=== PATIENT | male | born 1960 | race African-American/Black ===

== ENCOUNTER 2016-10-25 11:21 | Inpatient (IN) | payer OTHER ==
[2016-10-25 14:10] VITALS: BMI 24.5
--- NOTE | 2016-10-25 15:04 | HP ---
Admission ROS [facility] Chief Complaint: I AM HERE FOR REHAB FROM HEROIN,ALCOHOL,COCAINE Allergies/Adverse Reactions: Allergies Allergy/AdvReac Type Severity Reaction Status Date / Time No Known Allergies Allergy Verified 10/25/16 14:48 History of Present Illness: THIS 55 YEARS OLD MALE WITH HEROIN ALCOHOL AND COCAINE DEPENDENCE,FOR REHAB, LAST DETOX [facility] 10/19/16 TO 10/25/16 ASTHMA GERD NICOTINE DEPENDENCE LONGEST PERIOD SOBRIETY 7 YEARS Exam Limitations: No Limitations - Ebola screening Have you been sick,other than usual withdrawal symptoms: No - Review of Systems Constitutional: No Symptoms Reported EENT: reports: No Symptoms Reported Respiratory: reports: No Symptoms reported Cardiac: reports: No Symptoms Reported GI: reports: No Symptoms Reported : reports: No Symptoms Reported Musculoskeletal: reports: No Symptoms Reported Integumentary: reports: No Symptoms Reported Neuro: reports: No Symptoms reported Endocrine: reports: No Symptoms Reported Hematology: reports: No Symptoms Reported Psychiatric: reports: No Sypmtoms Reported Patient History - Patient Medical History Hx Anemia: No Hx Asthma: Yes (ON ALBUTEROL INHALER) Hx Chronic Obstructive Pulmonary Disease (COPD): No Hx Cancer: No Hx Cardiac Disorders: No Hx Congestive Heart Failure: No Hx Hypertension: No Hx Hypercholesterolemia: No Hx Pacemaker: No HX Cerebrovascular Accident: No Hx Seizures: No Hx Dementia: No Hx Diabetes: No Hx Gastrointestinal Disorders: Yes (GERD) Hx Liver Disease: No Hx Genitourinary Disorders: No Hx Sexually Transmitted Disorders: No Hx Renal Disease (ESRD): No Hx Thyroid Disease: No Hx Human Immunodeficiency Virus (HIV): No (LAST 2014 NEGATIVE) Hx Hepatitis C: No Hx Depression: No Hx Suicide Attempt: No Hx Bipolar Disorder: No Hx Schizophrenia: No Other Medical History: NO SUICIDAL,NO HOMICIDAL - Patient Surgical History Hx Abdominal Surgery: Yes (BLEEDING [facility]LCER IN [facility] 2009) - PPD History Previous Implant?: Yes Documented Results: Negative w/proof Implanted On Prior R Admission?: No PPD to be Administered?: No - Smoking Cessation Smoking history: Current every day smoker Have you smoked in the past 12 months: Yes Aproximately how many cigarettes per day: 5 Cigars Per Day: 0 Hx Chewing Tobacco Use: No Initiated information on smoking cessation: Yes 'Breaking Loose' booklet given: 10/25/16 - Substance & Tx. History Hx Alcohol Use: Yes Hx Substance Use: Yes Substance Use Type: Alcohol, Cocaine, Heroin Hx Substance Use Treatment: Yes - Substances Abused Heroin Route: Inhalation Frequency: Daily Amount used: 3 bags Age of first use: 34 Date of Last Use: 10/19/16 Crack Route: Smoking Frequency: Daily Amount used: $50 Age of first use: 34 Date of Last Use: 10/19/16 Alcohol Route: Oral Frequency: Daily Amount used: 1 pint rum Age of first use: 24 Date of Last Use: 10/19/16 Family Disease History - Family Disease History Family History: Denies Admission Physical Exam [facility] - Vital Signs Vital Signs: Vital Signs - 24 hr 10/25/16 14:07 Temperature 97 F L Pulse Rate 88 Respiratory 20 Rate Blood Pressure 113/87 - Physical General Appearance: Yes: Within Normal Limits, Appropriately Dressed HEENTM: Yes: Within Normal Limits Respiratory: Yes: Lungs Clear, Normal Breath Sounds, No Respiratory Distress Neck: Yes: Trachea in good position Breast: Yes: Within Normal Limits Cardiology: Yes: Within Normal Limits, Regular Rhythm, Regular Rate, S1, S2 Abdominal: Yes: Normal Bowel Sounds, Flat, Soft, Surgical Scar Genitourinary: Yes: Within Normal Limits Back: Yes: Within Normal Limits Musculoskeletal: Yes: Within Normal Limits, full range of Motion Extremities: Yes: Within Normal Limits 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 intact, Fully Oriented, Alert, Motor Strength 5/5 Integumentary: Yes: Within Normal Limits Lymphatic: Yes: Within Normal Limits - Diagnostic (1) Opioid dependence Current Visit: Yes Status: Acute (2) Cocaine dependence Current Visit: Yes Status: Acute (3) Alcohol dependence Current Visit: Yes Status: Acute (4) GERD (gastroesophageal reflux disease) Current Visit: Yes Status: Acute (5) Asthma attack Current Visit: Yes Status: Acute (6) Bleeding ulcer Current Visit: Yes Status: Acute (7) Weight loss Current Visit: Yes Status: Acute (8) Nicotine dependence Current Visit: Yes Status: Acute Cleared for Admission [facility] - Detox or Rehab Claeared for Rehab Admission: Yes [facility] Breath Alcohol Content Breath Alcohol Content: 0 Urine Drug Screen - Results Drug Screen Negative: Yes Urine Drug Screen Results: MET-Methamphetamine, BZO-Benzodiazepines
[2016-10-25] MEDS ORDERED: MAGNESIUM HYDROX 2400MG/30ML ORAL SUSPENSION 30 ML CUP PO PRN (15:13)
[2016-10-25] MEDS ORDERED: MAGNESIUM CITRATE 300 ML BOTTLE PO PRN (15:13)
[2016-10-25] MEDS ORDERED: LOPERAMIDE HCL 2 MG CAPSULE PO PRN (15:13)
[2016-10-25] MEDS ORDERED: MENTHOL/PHENOL 1 EACH UD MM PRN (15:13)
[2016-10-25] MEDS ORDERED: guaiFENesin/D-METHORPHAN HB 10 ML UNIT-DOSE CUPS PO PRN (15:13)
[2016-10-25] MEDS: NICOTINE 14 MG/24 HOURS TOPICAL PATCH TD SCH (17:37)
[2016-10-25 17:50] LABS: MCH 29.2 pg (25.7-33.7); MCHC 33.3 g/dl (32.0-35.9); MEAN CELL VOLUME 87.6 fl (80-96); RDW 15.1 % (11.9-15.9); WHITE BLOOD COUNT 4.9 K/mm3 (4.0-10.0)
[2016-10-25 18:01] LABS: ALBUMIN 3.4 g/dl (3.4-5.0); ANION GAP 7 (8-16); CALCIUM 9.1 mg/dL (8.5-10.1); CO2 32 mmol/L (21-32); GLUCOSE,RANDOM 151 mg/dL (74-106); SGOT/AST 30 U/L (15-37); SGPT/ALT 37 U/L (12-78)
[2016-10-25 18:04] LABS: ALK PHOS 61 U/L (45-117); BILIRUBIN,TOTAL 0.4 mg/dL (0.2-1.0)
[2016-10-25 19:07] LABS: URINE APPEARANCE CLEAR; URINE BILIRUBIN NEGATIVE (NEGATIVE); URINE BLOOD NEGATIVE (NEGATIVE); URINE COLOR STRAW; URINE GLUCOSE (UA) NEGATIVE (NEGATIVE); URINE KETONE NEGATIVE (NEGATIVE); URINE LEUK ESTERASE NEGATIVE (NEGATIVE); URINE NITRITE NEGATIVE (NEGATIVE); URINE PROTEIN NEGATIVE (NEGATIVE); URINE UROBILINOGEN NEGATIVE E.U./dl (0.2-1.0)
[2016-10-25 20:50] LABS: MEAN PLT VOLUME 9.5 fl (7.5-11.1); PLATELET COUNT 206 K/MM3 (134-434); PLATELET ESTIMATE ADEQUATE (NORMAL)
[2016-10-25] MEDS: RANITIDINE HCL 150 MG TABLET (FP) PO SCH (21:17)
[2016-10-25] MEDS: THIAMINE HCL 100 MG TABLET (FP) PO SCH (21:17)
[2016-10-26] MEDS: IBUPROFEN 400 MG TABLET (FP) PO PRN (06:07)
[2016-10-26] MEDS: PRENATAL VITAMINS W/ FOLIC ACID TABLET (FP) PO SCH (09:31)
[2016-10-26] MEDS: RANITIDINE HCL 150 MG TABLET (FP) PO SCH ×2 (09:31→21:08)
[2016-10-26] MEDS: NICOTINE 14 MG/24 HOURS TOPICAL PATCH TD SCH (10:30)
--- NOTE | 2016-10-26 14:59 | EKG ---
Test Reason : Blood Pressure : / mmHG Vent. Rate : 087 BPM Atrial Rate : 087 BPM P-R Int : 180 ms QRS Dur : 074 ms QT Int : 340 ms P-R-T Axes : 072 028 041 degrees QTc Int : 409 ms NORMAL SINUS RHYTHM NONSPECIFIC T WAVE ABNORMALITY ABNORMAL ECG Confirmed by AUBREY PRADO MD ([id number]) on 10/26/2016 2:59:01 PM Referred By: Zamzam Campbell Confirmed By:AUBREY PRADO MD
--- NOTE | 2016-10-26 15:01 | EKG ---
Test Reason : Blood Pressure : / mmHG Vent. Rate : 093 BPM Atrial Rate : 093 BPM P-R Int : 182 ms QRS Dur : 084 ms QT Int : 340 ms P-R-T Axes : 075 020 026 degrees QTc Int : 422 ms NORMAL SINUS RHYTHM POSSIBLE LEFT ATRIAL ENLARGEMENT SEPTAL INFARCT , AGE UNDETERMINED ABNORMAL ECG NO PREVIOUS ECGS AVAILABLE Confirmed by AUBREY PRADO MD ([id number]) on 10/26/2016 3:01:10 PM Referred By: Zamzam Campbell Confirmed By:AUBREY PRADO MD
[2016-10-26] MEDS: diphenhydrAMINE HCL 50 MG CAPSULE PO PRN ×2 (21:08→22:01)
[2016-10-26] MEDS: THIAMINE HCL 100 MG TABLET (FP) PO SCH (21:08)
[2016-10-27] MEDS: IBUPROFEN 400 MG TABLET (FP) PO PRN ×3 (00:18→21:08)
[2016-10-27] MEDS: NICOTINE 14 MG/24 HOURS TOPICAL PATCH TD SCH (09:28)
[2016-10-27] MEDS: RANITIDINE HCL 150 MG TABLET (FP) PO SCH ×2 (09:28→21:07)
[2016-10-27] MEDS: PRENATAL VITAMINS W/ FOLIC ACID TABLET (FP) PO SCH (09:28)
[2016-10-27] MEDS: hydrOXYzine PAMOATE 50 MG CAPSULE (FP) PO PRN (21:07)
[2016-10-27] MEDS: THIAMINE HCL 100 MG TABLET (FP) PO SCH (21:07)
--- NOTE | 2016-10-28 06:41 | HP ---
Psychiatrist Admission - Data Date of interview: 10/28/16 Admission source: [facility] Identifying data: nThis is the first [facility] admission for this 55 years old single male, father of 3 children, uemployed on SSI, homeless seeking reheb treatment for alcohol, heroin and cocaine Medical History: Significant for Asthma, GERD and surgery for bleeding ulcer. Smokes 5 cigarettes daily Psychiatric History: Denies history of previous psychiatric treatment Physical/Sexual Abuse/Trauma History: Denies history of emotional, physical, sexual abuse as well as DV relationship Additional Comment: Reports history of multiple arrests including 3 felony convictions. Reports having an open case for a warrant Vital Signs: Vital Signs - 24 hr 10/28/16 10/28/16 00:30 03:26 Respiratory 18 18 Rate Allergies/Adverse Reactions: Allergies Allergy/AdvReac Type Severity Reaction Status Date / Time No Known Allergies Allergy Verified 10/25/16 14:48 Date of last physical exam: 10/25/16 Concur with the findings of this exam: Yes - Substance Abuse/Tx History Hx Alcohol Use: Yes Hx Substance Use: Yes Substance Use Type: Alcohol (Started drinking alcohol at age 24, consumes one pint of rum daily. Last drink ob 10/19/16), Cocaine (Started smoking crack cocaine at age 34, consumes $50 worth daily. Last smoked on 10/19/16), Heroin ( Started using heroin at age 34, consumes 3 bags daily. Last used on 10/19/16) Hx Substance Use Treatment: Yes (2 previous inpt detox & one inpt rehab) - Admission Criteria Previous failed treatment: No Poor recovery environment: Yes Comorbidities: Yes Lacks judgement: Yes Mental Status Exam - Mental Status Exam Alert and Oriented to: Time, Place, Person Cognitive Function: Fair Patient Appearance: Disheveled Mood: Hopeful, Euthymic Patient Behavior: Cooperative Speech Pattern: Clear Voice Loudness: Normal Thought Process: Intact Thought Disorder: Not Present Hallucinations: Denies Suicidal Ideation: Denies Homicidal Ideation: Denies Insight/Judgement: Fair Sleep: Poorly Appetite: Good Muscle strength/Tone: Normal Gait/Station: Normal Psychiatric Findings - Problem List ([place] 1, 2,3) (1) Alcohol dependence Current Visit: Yes Status: Acute (2) Opioid dependence Current Visit: Yes Status: Acute (3) Cocaine dependence Current Visit: Yes Status: Acute (4) Nicotine dependence Current Visit: Yes Status: Acute (5) Substance-induced sleep disorder Current Visit: Yes Status: Acute (6) Asthma attack Current Visit: Yes Status: Acute (7) Bleeding ulcer Current Visit: Yes Status: Acute (8) GERD (gastroesophageal reflux disease) Current Visit: Yes Status: Acute - Initial Treatment Plan Initial Treatment Plan: 1) Start Trazadone 100 mg po HS for insomnia. 2) Monitor
[2016-10-28] MEDS: IBUPROFEN 400 MG TABLET (FP) PO PRN ×2 (09:00→21:53)
[2016-10-28] MEDS: PRENATAL VITAMINS W/ FOLIC ACID TABLET (FP) PO SCH (09:38)
[2016-10-28] MEDS: RANITIDINE HCL 150 MG TABLET (FP) PO SCH ×2 (09:39→21:21)
[2016-10-28] MEDS: NICOTINE 14 MG/24 HOURS TOPICAL PATCH TD SCH (09:39)
[2016-10-28] MEDS ORDERED: LIDOCAINE 5% TOPICAL PATCH TP ONE (14:01)
[2016-10-28] MEDS: THIAMINE HCL 100 MG TABLET (FP) PO SCH (21:21)
[2016-10-28] MEDS: hydrOXYzine PAMOATE 50 MG CAPSULE (FP) PO PRN (21:21)
[2016-10-28] MEDS: ALBUTEROL SO4 6.7 GM HFA INHALER IH PRN (21:23)
[2016-10-28] MEDS: diphenhydrAMINE HCL 50 MG CAPSULE PO PRN (23:39)
[2016-10-29] MEDS: IBUPROFEN 400 MG TABLET (FP) PO PRN (05:59)
[2016-10-29] MEDS: RANITIDINE HCL 150 MG TABLET (FP) PO SCH ×2 (09:38→21:11)
[2016-10-29] MEDS: PRENATAL VITAMINS W/ FOLIC ACID TABLET (FP) PO SCH (09:38)
[2016-10-29] MEDS: NICOTINE 14 MG/24 HOURS TOPICAL PATCH TD SCH (09:38)
[2016-10-29] MEDS: LIDOCAINE 5% TOPICAL PATCH TP SCH (09:40)
[2016-10-29] MEDS: THIAMINE HCL 100 MG TABLET (FP) PO SCH (21:11)
[2016-10-29] MEDS: IBUPROFEN 600 MG TABLET (FP) PO PRN (21:11)
[2016-10-29] MEDS ORDERED: traZODone HCL 100 MG TABLET (FP) PO SCH (22:00)
[2016-10-29] MEDS: diphenhydrAMINE HCL 50 MG CAPSULE PO PRN (22:58)
[2016-10-30] MEDS: IBUPROFEN 600 MG TABLET (FP) PO PRN ×2 (07:18→22:08)
[2016-10-30] MEDS: RANITIDINE HCL 150 MG TABLET (FP) PO SCH ×2 (09:32→21:27)
[2016-10-30] MEDS: PRENATAL VITAMINS W/ FOLIC ACID TABLET (FP) PO SCH (09:32)
[2016-10-30] MEDS: LIDOCAINE 5% TOPICAL PATCH TP SCH (09:32)
[2016-10-30] MEDS: NICOTINE 14 MG/24 HOURS TOPICAL PATCH TD SCH (09:32)
--- NOTE | 2016-10-30 10:11 | PN ---
Psychiatric Progress Note Vital Signs: Vital Signs Period Temp Pulse Resp BP Sys/[place] Pulse Ox Last 24 Hr 98.3 F 89 18-20 133/89 Date of Session: 10/30/16 Chief Complaint:: Insomnia HPI: Patient addressing Alcohol, Opoid and Cocaine Dependence comorbid with Nicotine Dependence and Substance-Induced Sleep Disorder ROS: Asthma, GERD, Bleeding ulcer Current Medications: Active Medications Generic Name Dose Route Start Last Admin Trade Name Freq PRN Reason Stop Dose Admin Acetaminophen 650 mg 10/25/16 15:13 Tylenol - PO Q4H PRN PAIN Al Hydroxide/Mg Hydroxide 30 ml 10/25/16 15:13 Mylanta Oral Suspension - PO Q6H PRN DYSPEPSIA Albuterol Sulfate 2 puff 10/25/16 15:15 10/28/16 21:23 Ventolin Hfa Inhaler - IH 2 puff Q4H PRN Administration ASTHMA Diphenhydramine HCl 50 mg 10/25/16 15:13 10/29/16 22:58 Benadryl - PO 50 mg HSMR1 PRN Administration INSOMNIA Eucalyptus/Menthol/Phenol/Sorbitol 1 each 10/25/16 15:13 Cepastat Lozenge - MM Q4H PRN SORE THROAT Guaifenesin 10 ml 10/25/16 15:13 Robitussin Dm - PO Q6H PRN COUGH Hydroxyzine Pamoate 50 mg 10/25/16 15:13 10/28/16 21:21 Vistaril - PO 50 mg Q4H PRN Administration AGITATION Ibuprofen 600 mg 10/29/16 14:05 10/30/16 07:18 Motrin - PO 600 mg Q6H PRN Administration SEVERE PAIN Lidocaine 1 patch 10/29/16 10:00 10/30/16 09:32 Lidoderm Patch - TP 1 patch DAILY AHSLYN Administration Loperamide HCl 4 mg 10/25/16 15:13 Imodium - PO Q6H PRN DIARRHEA Magnesium Citrate 300 ml 10/25/16 15:13 Citroma - PO Q48H PRN CONSTIPATION Magnesium Hydroxide 30 ml 10/25/16 15:13 Milk Of Magnesia - PO DAILY PRN CONSTIPATION Nicotine 14 mg 10/25/16 15:27 10/30/16 09:32 Nicoderm Patch - TD 14 mg DAILY ASHLYN Administration Multivit/Folic Acid/Iron 1 tab 10/26/16 10:00 10/30/16 09:32 Vitamins (Sjr) - PO 1 tab DAILY ASHLYN Administration Pseudoephedrine/Triprolidine 1 combo 10/25/16 15:13 Actifed - PO TID PRN NASAL CONGESTION Ranitidine HCl 150 mg 10/25/16 22:00 10/30/16 09:32 Zantac - PO 150 mg BID ASHLYN Administration Thiamine HCl 100 mg 10/25/16 22:00 10/29/16 21:11 Vitamin B1 - PO 100 mg HS ASHLYN Administration Trazodone HCl 100 mg 10/29/16 22:00 10/29/16 21:11 Desyrel - PO 100 mg HS ASHLYN Administration Medication(s) Change(s): Increase Trazadone to 150 mg po HS for insomnia Current Side Effect: No Lab tests ordered: Yes Lab tests reviewed: Yes Provider note:: Patient reports experiencing difficulty to sleep. Reports sleeping poorly despite taking Trazadone 100 mg po HS last night. He requests that Seroquel be ordered for him. He was educated about some adverse-effects( Diabetes, Tardive Dyskesia) of Seroquel and makes the decision to have an increase dose of Seroquel instead Total face to face time:: 25 Mental Status Exam - Mental Status Exam Alert and Oriented to: Time, Place, Person Cognitive Function: Fair Patient Appearance: Well Groomed Mood: Hopeful, Euthymic Affect: Appropriate Patient Behavior: Cooperative Speech Pattern: Clear Voice Loudness: Normal Thought Process: Intact Thought Disorder: Not Present Hallucinations: Denies Suicidal Ideation: Denies Homicidal Ideation: Denies Insight/Judgement: Fair Sleep: Poorly Appetite: Good Muscle strength/Tone: Normal Gait/Station: Normal Psychiatric Treatment Plan - Problem List (1) Alcohol dependence Current Visit: Yes (2) Opioid dependence Current Visit: Yes (3) Cocaine dependence Current Visit: Yes (4) Nicotine dependence Current Visit: Yes (5) Substance-induced sleep disorder Current Visit: Yes (6) Asthma attack Current Visit: Yes (7) Bleeding ulcer Current Visit: Yes (8) GERD (gastroesophageal reflux disease) Current Visit: Yes Initial treatment plan: 1) Discontinue Trazadone 100 mg po HS. 2) Start Trazadone 150 mg po HS for insomnia
[2016-10-30 10:54] LABS: CREATININE 0.9 mg/dL (0.7-1.3)
[2016-10-30] MEDS: COLLOIDAL OATMEAL 1 BAR EACH TP PRN (21:26)
[2016-10-30] MEDS: THIAMINE HCL 100 MG TABLET (FP) PO SCH (21:27)
[2016-10-30] MEDS ORDERED: traZODone HCL 50 MG TABLET (FP) PO SCH (22:00)
[2016-10-30] MEDS: diphenhydrAMINE HCL 50 MG CAPSULE PO PRN (23:45)
[2016-10-31] MEDS: IBUPROFEN 600 MG TABLET (FP) PO PRN ×2 (06:10→21:27)
[2016-10-31] MEDS: PRENATAL VITAMINS W/ FOLIC ACID TABLET (FP) PO SCH (09:34)
[2016-10-31] MEDS: NICOTINE 14 MG/24 HOURS TOPICAL PATCH TD SCH (09:34)
[2016-10-31] MEDS: RANITIDINE HCL 150 MG TABLET (FP) PO SCH ×2 (09:34→21:26)
[2016-10-31] MEDS: P-EPHED 60MG/TRIPROLIDI 2.5MG TABLET PO PRN (09:35)
[2016-10-31] MEDS: LIDOCAINE 5% TOPICAL PATCH TP SCH (09:35)
--- NOTE | 2016-10-31 10:36 | PN ---
Psychiatric Progress Note Vital Signs: Vital Signs Period Temp Pulse Resp BP Sys/Almeida Pulse Ox Last 24 Hr 97.5 F 81 16-18 140/92 Date of Session: 10/31/16 Chief Complaint:: Insomnia HPI: Patient addressing Alcohol, Opoid and Cocaine Dependence comorbid with Nicotine Dependence and Substance-Induced Sleep Disorder ROS: Asthma, GERD, Bleeding ulcer Current Medications: Active Medications Generic Name Dose Route Start Last Admin Trade Name Freq PRN Reason Stop Dose Admin Acetaminophen 650 mg 10/25/16 15:13 Tylenol - PO Q4H PRN PAIN Al Hydroxide/Mg Hydroxide 30 ml 10/25/16 15:13 Mylanta Oral Suspension - PO Q6H PRN DYSPEPSIA Albuterol Sulfate 2 puff 10/25/16 15:15 10/28/16 21:23 Ventolin Hfa Inhaler - IH 2 puff Q4H PRN Administration ASTHMA Colloidal Oatmeal 1 applic 10/30/16 16:07 10/30/16 21:26 Aveeno Soap - TP 1 applic DAILY PRN Administration HYGEINE Diphenhydramine HCl 50 mg 10/25/16 15:13 10/30/16 23:45 Benadryl - PO 50 mg HSMR1 PRN Administration INSOMNIA Eucalyptus/Menthol/Phenol/Sorbitol 1 each 10/25/16 15:13 Cepastat Lozenge - MM Q4H PRN SORE THROAT Guaifenesin 10 ml 10/25/16 15:13 Robitussin Dm - PO Q6H PRN COUGH Hydroxyzine Pamoate 50 mg 10/25/16 15:13 10/28/16 21:21 Vistaril - PO 50 mg Q4H PRN Administration AGITATION Ibuprofen 600 mg 10/29/16 14:05 10/31/16 06:10 Motrin - PO 600 mg Q6H PRN Administration SEVERE PAIN Lidocaine 1 patch 10/29/16 10:00 10/31/16 09:35 Lidoderm Patch - TP 1 patch DAILY ASHLYN Administration Loperamide HCl 4 mg 10/25/16 15:13 Imodium - PO Q6H PRN DIARRHEA Magnesium Citrate 300 ml 10/25/16 15:13 Citroma - PO Q48H PRN CONSTIPATION Magnesium Hydroxide 30 ml 10/25/16 15:13 Milk Of Magnesia - PO DAILY PRN CONSTIPATION Nicotine 14 mg 10/25/16 15:27 10/31/16 09:34 Nicoderm Patch - TD 14 mg DAILY ASHLYN Administration Multivit/Folic Acid/Iron 1 tab 10/26/16 10:00 10/31/16 09:34 Vitamins (Sjr) - PO 1 tab DAILY ASHLYN Administration Pseudoephedrine/Triprolidine 1 combo 10/25/16 15:13 10/31/16 09:35 Actifed - PO 1 combo TID PRN Administration NASAL CONGESTION Ranitidine HCl 150 mg 10/25/16 22:00 10/31/16 09:34 Zantac - PO 150 mg BID ASHLYN Administration Thiamine HCl 100 mg 10/25/16 22:00 10/30/16 21:27 Vitamin B1 - PO 100 mg HS ASHLYN Administration Trazodone HCl 150 mg 10/30/16 22:00 10/30/16 21:27 Desyrel - PO 150 mg HS ASHLYN Administration Medication(s) Change(s): 1) Discontinue Trazadone 150 mg po H2. 2) Start Seroquel 100 mg po HS short term for insomnia. 3) Monitor progress Current Side Effect: No Provider note:: Patient reports difficulty breathing and attributes that to taking Trazadone. Again, he requests to have Seroquel for sleep despite the fact adverse-effects like diabetes and Tardive Dyskenesia were discussed with him. He claims that he took Seroquel up to 200 mg in the past for sleep and that was the only thing that helped him Total face to face time:: 25 Mental Status Exam - Mental Status Exam Alert and Oriented to: Time, Place, Person Cognitive Function: Fair Patient Appearance: Well Groomed Mood: Hopeful, Euthymic Affect: Appropriate Patient Behavior: Cooperative Speech Pattern: Clear Voice Loudness: Normal, Limited Variation Thought Disorder: Not Present Hallucinations: Denies Suicidal Ideation: Denies Homicidal Ideation: Denies Insight/Judgement: Fair Sleep: Poorly Appetite: Good Muscle strength/Tone: Normal Gait/Station: Normal Psychiatric Treatment Plan - Problem List (1) Alcohol dependence Current Visit: Yes (2) Opioid dependence Current Visit: Yes (3) Cocaine dependence Current Visit: Yes (4) Nicotine dependence Current Visit: Yes (5) Substance-induced sleep disorder Current Visit: Yes (6) Asthma attack Current Visit: Yes (7) Bleeding ulcer Current Visit: Yes (8) GERD (gastroesophageal reflux disease) Current Visit: Yes Initial treatment plan: 1) Discontinue Trazadone 150 mg po HS for insomnia. 2) Start Seroquel 100 mg po HS for insomnia. Patient made aware that he will not be provided with script for that medication on discharge. He agreed with that plan. 3) Monitor progress
[2016-10-31] MEDS: THIAMINE HCL 100 MG TABLET (FP) PO SCH (21:26)
[2016-10-31] MEDS: QUEtiapine FUMARATE 100 MG TABLET (FP) PO SCH (21:26)
[2016-11-01] MEDS: IBUPROFEN 600 MG TABLET (FP) PO PRN ×2 (06:13→21:41)
[2016-11-01] MEDS: RANITIDINE HCL 150 MG TABLET (FP) PO SCH ×2 (09:01→21:41)
[2016-11-01] MEDS: PRENATAL VITAMINS W/ FOLIC ACID TABLET (FP) PO SCH (09:01)
[2016-11-01] MEDS: NICOTINE 14 MG/24 HOURS TOPICAL PATCH TD SCH (09:02)
[2016-11-01] MEDS: LIDOCAINE 5% TOPICAL PATCH TP SCH (09:03)
[2016-11-01] MEDS: THIAMINE HCL 100 MG TABLET (FP) PO SCH (21:40)
[2016-11-01] MEDS: QUEtiapine FUMARATE 100 MG TABLET (FP) PO SCH (21:41)
[2016-11-02] MEDS: diphenhydrAMINE HCL 50 MG CAPSULE PO PRN ×3 (00:21→23:44)
[2016-11-02] MEDS: ACETAMINOPHEN 325 MG TABLET (FP) PO PRN ×2 (00:21→23:43)
[2016-11-02] MEDS: hydrOXYzine PAMOATE 50 MG CAPSULE (FP) PO PRN (02:14)
[2016-11-02] MEDS: IBUPROFEN 600 MG TABLET (FP) PO PRN ×3 (05:52→21:31)
[2016-11-02] MEDS: RANITIDINE HCL 150 MG TABLET (FP) PO SCH ×2 (09:33→21:31)
[2016-11-02] MEDS: NICOTINE 14 MG/24 HOURS TOPICAL PATCH TD SCH (09:33)
[2016-11-02] MEDS: PRENATAL VITAMINS W/ FOLIC ACID TABLET (FP) PO SCH (09:33)
[2016-11-02] MEDS: LIDOCAINE 5% TOPICAL PATCH TP SCH (09:34)
[2016-11-02] MEDS: P-EPHED 60MG/TRIPROLIDI 2.5MG TABLET PO PRN (10:11)
[2016-11-02] MEDS: QUEtiapine FUMARATE 100 MG TABLET (FP) PO SCH (21:31)
[2016-11-02] MEDS: THIAMINE HCL 100 MG TABLET (FP) PO SCH (21:33)
[2016-11-02] MEDS: MAG HYDROX/AL HYDROX/SIMETH 30 ML UNIT-DOSE CUP PO PRN (23:53)
[2016-11-03] MEDS: IBUPROFEN 600 MG TABLET (FP) PO PRN ×3 (05:50→21:18)
[2016-11-03] MEDS: NICOTINE 14 MG/24 HOURS TOPICAL PATCH TD SCH (09:57)
[2016-11-03] MEDS: RANITIDINE HCL 150 MG TABLET (FP) PO SCH ×2 (09:57→21:18)
[2016-11-03] MEDS: LIDOCAINE 5% TOPICAL PATCH TP SCH (09:57)
[2016-11-03] MEDS: PRENATAL VITAMINS W/ FOLIC ACID TABLET (FP) PO SCH (09:57)
[2016-11-03] MEDS: QUEtiapine FUMARATE 100 MG TABLET (FP) PO SCH (21:18)
[2016-11-03] MEDS: THIAMINE HCL 100 MG TABLET (FP) PO SCH (21:18)
[2016-11-04] MEDS: IBUPROFEN 600 MG TABLET (FP) PO PRN ×3 (06:34→21:27)
[2016-11-04] MEDS: PRENATAL VITAMINS W/ FOLIC ACID TABLET (FP) PO SCH (09:55)
[2016-11-04] MEDS: LIDOCAINE 5% TOPICAL PATCH TP SCH (09:55)
[2016-11-04] MEDS: NICOTINE 14 MG/24 HOURS TOPICAL PATCH TD SCH (09:55)
[2016-11-04] MEDS: RANITIDINE HCL 150 MG TABLET (FP) PO SCH ×2 (09:55→21:26)
[2016-11-04] MEDS: QUEtiapine FUMARATE 100 MG TABLET (FP) PO SCH (21:26)
[2016-11-04] MEDS: THIAMINE HCL 100 MG TABLET (FP) PO SCH (21:26)
[2016-11-05] MEDS: MAG HYDROX/AL HYDROX/SIMETH 30 ML UNIT-DOSE CUP PO PRN ×2 (00:14→22:39)
[2016-11-05] MEDS: IBUPROFEN 600 MG TABLET (FP) PO PRN ×2 (08:17→21:06)
[2016-11-05] MEDS: RANITIDINE HCL 150 MG TABLET (FP) PO SCH ×2 (09:31→21:07)
[2016-11-05] MEDS: PRENATAL VITAMINS W/ FOLIC ACID TABLET (FP) PO SCH (09:31)
[2016-11-05] MEDS: NICOTINE 14 MG/24 HOURS TOPICAL PATCH TD SCH (09:31)
[2016-11-05] MEDS: LIDOCAINE 5% TOPICAL PATCH TP SCH (09:32)
[2016-11-05] MEDS: THIAMINE HCL 100 MG TABLET (FP) PO SCH (21:06)
[2016-11-05] MEDS: QUEtiapine FUMARATE 100 MG TABLET (FP) PO SCH (21:06)
[2016-11-06] MEDS: IBUPROFEN 600 MG TABLET (FP) PO PRN ×3 (06:01→21:31)
[2016-11-06] MEDS: PRENATAL VITAMINS W/ FOLIC ACID TABLET (FP) PO SCH (09:27)
[2016-11-06] MEDS: RANITIDINE HCL 150 MG TABLET (FP) PO SCH ×2 (09:27→21:30)
[2016-11-06] MEDS: NICOTINE 14 MG/24 HOURS TOPICAL PATCH TD SCH (09:27)
[2016-11-06] MEDS: LIDOCAINE 5% TOPICAL PATCH TP SCH (09:29)
[2016-11-06] MEDS: THIAMINE HCL 100 MG TABLET (FP) PO SCH (21:30)
[2016-11-06] MEDS: QUEtiapine FUMARATE 100 MG TABLET (FP) PO SCH (21:30)
[2016-11-06] MEDS: MAG HYDROX/AL HYDROX/SIMETH 30 ML UNIT-DOSE CUP PO PRN (23:31)
[2016-11-07] MEDS: RANITIDINE HCL 150 MG TABLET (FP) PO SCH ×2 (09:38→21:35)
[2016-11-07] MEDS: IBUPROFEN 600 MG TABLET (FP) PO PRN ×2 (09:38→21:34)
[2016-11-07] MEDS: PRENATAL VITAMINS W/ FOLIC ACID TABLET (FP) PO SCH (09:38)
[2016-11-07] MEDS: NICOTINE 14 MG/24 HOURS TOPICAL PATCH TD SCH (09:39)
[2016-11-07] MEDS: LIDOCAINE 5% TOPICAL PATCH TP SCH (09:39)
[2016-11-07] MEDS: ACETAMINOPHEN 325 MG TABLET (FP) PO PRN (14:37)
[2016-11-07] MEDS: MAG HYDROX/AL HYDROX/SIMETH 30 ML UNIT-DOSE CUP PO PRN ×2 (15:01→23:32)
[2016-11-07] MEDS: QUEtiapine FUMARATE 100 MG TABLET (FP) PO SCH (21:33)
[2016-11-07] MEDS: THIAMINE HCL 100 MG TABLET (FP) PO SCH (21:33)
[2016-11-07] MEDS: hydrOXYzine PAMOATE 50 MG CAPSULE (FP) PO PRN (21:34)
[2016-11-08] MEDS: ACETAMINOPHEN 325 MG TABLET (FP) PO PRN ×2 (00:22→12:34)
[2016-11-08] MEDS: RANITIDINE HCL 150 MG TABLET (FP) PO SCH ×2 (09:00→21:26)
[2016-11-08] MEDS: PRENATAL VITAMINS W/ FOLIC ACID TABLET (FP) PO SCH (09:00)
[2016-11-08] MEDS: NICOTINE 14 MG/24 HOURS TOPICAL PATCH TD SCH (09:00)
[2016-11-08] MEDS: IBUPROFEN 600 MG TABLET (FP) PO PRN ×2 (09:00→15:54)
[2016-11-08] MEDS: LIDOCAINE 5% TOPICAL PATCH TP SCH (09:02)
[2016-11-08] MEDS: THIAMINE HCL 100 MG TABLET (FP) PO SCH (21:26)
[2016-11-08] MEDS: QUEtiapine FUMARATE 100 MG TABLET (FP) PO SCH (21:26)
[2016-11-09] MEDS: IBUPROFEN 600 MG TABLET (FP) PO PRN ×2 (08:48→21:18)
[2016-11-09] MEDS: RANITIDINE HCL 150 MG TABLET (FP) PO SCH ×2 (09:38→21:18)
[2016-11-09] MEDS: PRENATAL VITAMINS W/ FOLIC ACID TABLET (FP) PO SCH (09:38)
[2016-11-09] MEDS: NICOTINE 14 MG/24 HOURS TOPICAL PATCH TD SCH (09:38)
[2016-11-09] MEDS: LIDOCAINE 5% TOPICAL PATCH TP SCH (09:39)
[2016-11-09] MEDS: ACETAMINOPHEN 325 MG TABLET (FP) PO PRN (14:25)
[2016-11-09] MEDS: THIAMINE HCL 100 MG TABLET (FP) PO SCH (21:17)
[2016-11-09] MEDS: hydrOXYzine PAMOATE 50 MG CAPSULE (FP) PO PRN (21:17)
[2016-11-09] MEDS: QUEtiapine FUMARATE 100 MG TABLET (FP) PO SCH (21:20)
[2016-11-10] MEDS: ACETAMINOPHEN 325 MG TABLET (FP) PO PRN ×3 (06:34→21:20)
[2016-11-10] MEDS: LIDOCAINE 5% TOPICAL PATCH TP SCH (09:24)
[2016-11-10] MEDS: RANITIDINE HCL 150 MG TABLET (FP) PO SCH ×2 (09:24→21:19)
[2016-11-10] MEDS: NICOTINE 14 MG/24 HOURS TOPICAL PATCH TD SCH (09:24)
[2016-11-10] MEDS: PRENATAL VITAMINS W/ FOLIC ACID TABLET (FP) PO SCH (09:24)
[2016-11-10] MEDS: IBUPROFEN 600 MG TABLET (FP) PO PRN ×2 (09:25→23:35)
[2016-11-10] MEDS: MAG HYDROX/AL HYDROX/SIMETH 30 ML UNIT-DOSE CUP PO PRN (15:51)
[2016-11-10] MEDS: diphenhydrAMINE HCL 50 MG CAPSULE PO PRN ×2 (21:19→23:34)
[2016-11-10] MEDS: THIAMINE HCL 100 MG TABLET (FP) PO SCH (21:19)
[2016-11-10] MEDS: QUEtiapine FUMARATE 100 MG TABLET (FP) PO SCH (21:19)
[2016-11-11] MEDS: ACETAMINOPHEN 325 MG TABLET (FP) PO PRN ×2 (02:19→22:45)
[2016-11-11] MEDS: IBUPROFEN 600 MG TABLET (FP) PO PRN ×2 (06:19→21:24)
[2016-11-11] MEDS: COLLOIDAL OATMEAL 1 BAR EACH TP PRN (06:33)
[2016-11-11] MEDS: PRENATAL VITAMINS W/ FOLIC ACID TABLET (FP) PO SCH (09:36)
[2016-11-11] MEDS: RANITIDINE HCL 150 MG TABLET (FP) PO SCH ×2 (09:36→21:23)
[2016-11-11] MEDS: NICOTINE 14 MG/24 HOURS TOPICAL PATCH TD SCH (09:36)
[2016-11-11] MEDS: LIDOCAINE 5% TOPICAL PATCH TP SCH (09:39)
[2016-11-11] MEDS: MAG HYDROX/AL HYDROX/SIMETH 30 ML UNIT-DOSE CUP PO PRN (20:31)
[2016-11-11] MEDS: diphenhydrAMINE HCL 50 MG CAPSULE PO PRN (21:23)
[2016-11-11] MEDS: QUEtiapine FUMARATE 100 MG TABLET (FP) PO SCH (21:23)
[2016-11-11] MEDS: THIAMINE HCL 100 MG TABLET (FP) PO SCH (21:23)
[2016-11-12] MEDS: diphenhydrAMINE HCL 50 MG CAPSULE PO PRN (00:54)
[2016-11-12] MEDS: IBUPROFEN 600 MG TABLET (FP) PO PRN ×2 (06:27→21:33)
[2016-11-12] MEDS: NICOTINE 14 MG/24 HOURS TOPICAL PATCH TD SCH (09:45)
[2016-11-12] MEDS: RANITIDINE HCL 150 MG TABLET (FP) PO SCH ×2 (09:45→21:34)
[2016-11-12] MEDS: PRENATAL VITAMINS W/ FOLIC ACID TABLET (FP) PO SCH (09:45)
[2016-11-12] MEDS: P-EPHED 60MG/TRIPROLIDI 2.5MG TABLET PO PRN (09:46)
[2016-11-12] MEDS: ALBUTEROL SO4 6.7 GM HFA INHALER IH PRN (09:46)
[2016-11-12] MEDS: LIDOCAINE 5% TOPICAL PATCH TP SCH (09:46)
[2016-11-12] MEDS: ACETAMINOPHEN 325 MG TABLET (FP) PO PRN (12:24)
[2016-11-12] MEDS ORDERED: PT OWN MED DRAWER 7, Y5N ONE (15:21)
[2016-11-12] MEDS: THIAMINE HCL 100 MG TABLET (FP) PO SCH (21:33)
[2016-11-12] MEDS: hydrOXYzine PAMOATE 50 MG CAPSULE (FP) PO PRN (21:33)
[2016-11-12] MEDS: QUEtiapine FUMARATE 100 MG TABLET (FP) PO SCH (21:34)
[2016-11-13] MEDS: IBUPROFEN 600 MG TABLET (FP) PO PRN (05:57)
[2016-11-13] MEDS: PRENATAL VITAMINS W/ FOLIC ACID TABLET (FP) PO SCH (09:42)
[2016-11-13] MEDS: RANITIDINE HCL 150 MG TABLET (FP) PO SCH ×2 (09:42→21:20)
[2016-11-13] MEDS: ALBUTEROL SO4 6.7 GM HFA INHALER IH PRN (09:43)
[2016-11-13] MEDS ORDERED: PT OWN MED DRAWER 7, Y5N ONE (09:44)
[2016-11-13] MEDS: NICOTINE 14 MG/24 HOURS TOPICAL PATCH TD SCH (09:44)
[2016-11-13] MEDS: LIDOCAINE 5% TOPICAL PATCH TP SCH (09:45)
[2016-11-13] MEDS: ACETAMINOPHEN 325 MG TABLET (FP) PO PRN (10:06)
[2016-11-13] MEDS: QUEtiapine FUMARATE 100 MG TABLET (FP) PO SCH (21:19)
[2016-11-13] MEDS: THIAMINE HCL 100 MG TABLET (FP) PO SCH (21:20)
[2016-11-13] MEDS: hydrOXYzine PAMOATE 50 MG CAPSULE (FP) PO PRN (21:20)
[2016-11-13] MEDS: IBUPROFEN 400 MG TABLET (FP) PO PRN (21:20)
[2016-11-14] MEDS: ACETAMINOPHEN 325 MG TABLET (FP) PO PRN ×2 (02:59→22:35)
[2016-11-14] MEDS: IBUPROFEN 400 MG TABLET (FP) PO PRN ×2 (06:46→21:03)
[2016-11-14] MEDS: PRENATAL VITAMINS W/ FOLIC ACID TABLET (FP) PO SCH (09:32)
[2016-11-14] MEDS: RANITIDINE HCL 150 MG TABLET (FP) PO SCH ×2 (09:32→21:03)
[2016-11-14] MEDS: ALBUTEROL SO4 6.7 GM HFA INHALER IH PRN (09:32)
[2016-11-14] MEDS: NICOTINE 14 MG/24 HOURS TOPICAL PATCH TD SCH (09:33)
[2016-11-14] MEDS: LIDOCAINE 5% TOPICAL PATCH TP SCH (09:33)
[2016-11-14] MEDS: P-EPHED 60MG/TRIPROLIDI 2.5MG TABLET PO PRN (09:35)
[2016-11-14] MEDS: CYCLOBENZAPRINE HCL 10 MG TABLET (FP) PO PRN ×2 (09:35→21:02)
[2016-11-14] MEDS: THIAMINE HCL 100 MG TABLET (FP) PO SCH (21:02)
[2016-11-14] MEDS: QUEtiapine FUMARATE 100 MG TABLET (FP) PO SCH (21:02)
[2016-11-14] MEDS ORDERED: NAPROXEN 500 MG TABLET (FP) PO ONE (22:39)
[2016-11-15] MEDS: MAG HYDROX/AL HYDROX/SIMETH 30 ML UNIT-DOSE CUP PO PRN (00:24)
[2016-11-15] MEDS: ACETAMINOPHEN 325 MG TABLET (FP) PO PRN (02:22)
[2016-11-15] MEDS: LIDOCAINE 5% TOPICAL PATCH TP SCH (09:45)
[2016-11-15] MEDS: RANITIDINE HCL 150 MG TABLET (FP) PO SCH ×2 (09:45→21:05)
[2016-11-15] MEDS: NAPROXEN 500 MG TABLET (FP) PO SCH ×2 (09:45→21:05)
[2016-11-15] MEDS: PRENATAL VITAMINS W/ FOLIC ACID TABLET (FP) PO SCH (09:45)
[2016-11-15] MEDS: NICOTINE 14 MG/24 HOURS TOPICAL PATCH TD SCH (09:47)
[2016-11-15] MEDS: ALBUTEROL SO4 6.7 GM HFA INHALER IH PRN (09:47)
[2016-11-15] MEDS: QUEtiapine FUMARATE 100 MG TABLET (FP) PO SCH (21:05)
[2016-11-15] MEDS: THIAMINE HCL 100 MG TABLET (FP) PO SCH (21:05)
[2016-11-15] MEDS: diphenhydrAMINE HCL 50 MG CAPSULE PO PRN (21:05)
[2016-11-16] MEDS: ACETAMINOPHEN 325 MG TABLET (FP) PO PRN ×3 (00:45→23:54)
[2016-11-16] MEDS: NICOTINE 14 MG/24 HOURS TOPICAL PATCH TD SCH (09:39)
[2016-11-16] MEDS: NAPROXEN 500 MG TABLET (FP) PO SCH ×2 (09:39→21:37)
[2016-11-16] MEDS: PRENATAL VITAMINS W/ FOLIC ACID TABLET (FP) PO SCH (09:39)
[2016-11-16] MEDS: RANITIDINE HCL 150 MG TABLET (FP) PO SCH ×2 (09:39→21:37)
[2016-11-16] MEDS: LIDOCAINE 5% TOPICAL PATCH TP SCH (09:40)
[2016-11-16] MEDS: QUEtiapine FUMARATE 100 MG TABLET (FP) PO SCH (21:37)
[2016-11-16] MEDS: THIAMINE HCL 100 MG TABLET (FP) PO SCH (21:38)
[2016-11-16] MEDS: CYCLOBENZAPRINE HCL 10 MG TABLET (FP) PO PRN (23:54)
[2016-11-17] MEDS: NICOTINE 14 MG/24 HOURS TOPICAL PATCH TD SCH (09:37)
[2016-11-17] MEDS: LIDOCAINE 5% TOPICAL PATCH TP SCH (09:37)
[2016-11-17] MEDS: PRENATAL VITAMINS W/ FOLIC ACID TABLET (FP) PO SCH (09:38)
[2016-11-17] MEDS: NAPROXEN 500 MG TABLET (FP) PO SCH ×2 (09:38→21:09)
[2016-11-17] MEDS: RANITIDINE HCL 150 MG TABLET (FP) PO SCH ×2 (09:39→21:09)
[2016-11-17] MEDS: CYCLOBENZAPRINE HCL 10 MG TABLET (FP) PO PRN (21:09)
[2016-11-17] MEDS: QUEtiapine FUMARATE 100 MG TABLET (FP) PO SCH (21:09)
[2016-11-17] MEDS: THIAMINE HCL 100 MG TABLET (FP) PO SCH (21:10)
[2016-11-17] MEDS: ACETAMINOPHEN 325 MG TABLET (FP) PO PRN (22:16)
[2016-11-17] MEDS: MAG HYDROX/AL HYDROX/SIMETH 30 ML UNIT-DOSE CUP PO PRN (22:17)
[2016-11-18] MEDS: ACETAMINOPHEN 325 MG TABLET (FP) PO PRN ×2 (06:44→22:22)
[2016-11-18] MEDS: RANITIDINE HCL 150 MG TABLET (FP) PO SCH ×2 (09:33→21:23)
[2016-11-18] MEDS: NICOTINE 14 MG/24 HOURS TOPICAL PATCH TD SCH (09:33)
[2016-11-18] MEDS: NAPROXEN 500 MG TABLET (FP) PO SCH ×2 (09:33→21:23)
[2016-11-18] MEDS: LIDOCAINE 5% TOPICAL PATCH TP SCH (09:33)
[2016-11-18] MEDS: PRENATAL VITAMINS W/ FOLIC ACID TABLET (FP) PO SCH (09:33)
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
[2016-11-18] MEDS: CLOTRIMAZOLE/BETAMET DIPROP 15 GM TUBE TP SCH (21:21)
[2016-11-18] MEDS: GABAPENTIN 100 MG CAPSULE (FP) PO SCH (21:22)
[2016-11-18] MEDS: QUEtiapine FUMARATE 100 MG TABLET (FP) PO SCH (21:22)
[2016-11-18] MEDS: THIAMINE HCL 100 MG TABLET (FP) PO SCH (21:23)
[2016-11-19] MEDS: GABAPENTIN 100 MG CAPSULE (FP) PO SCH ×3 (06:00→21:02)
[2016-11-19] MEDS: PRENATAL VITAMINS W/ FOLIC ACID TABLET (FP) PO SCH (09:39)
[2016-11-19] MEDS: RANITIDINE HCL 150 MG TABLET (FP) PO SCH ×2 (09:40→21:03)
[2016-11-19] MEDS: NAPROXEN 500 MG TABLET (FP) PO SCH ×2 (09:40→21:03)
[2016-11-19] MEDS: NICOTINE 14 MG/24 HOURS TOPICAL PATCH TD SCH (09:40)
[2016-11-19] MEDS: LIDOCAINE 5% TOPICAL PATCH TP SCH (09:41)
[2016-11-19] MEDS: ALBUTEROL SO4 6.7 GM HFA INHALER IH PRN (09:41)
[2016-11-19] MEDS: CLOTRIMAZOLE/BETAMET DIPROP 15 GM TUBE TP SCH ×2 (10:18→21:04)
[2016-11-19] MEDS: QUEtiapine FUMARATE 100 MG TABLET (FP) PO SCH (21:03)
[2016-11-19] MEDS: THIAMINE HCL 100 MG TABLET (FP) PO SCH (21:04)
[2016-11-20] MEDS: GABAPENTIN 100 MG CAPSULE (FP) PO SCH ×3 (05:56→21:22)
[2016-11-20] MEDS: ACETAMINOPHEN 325 MG TABLET (FP) PO PRN ×2 (06:44→22:59)
[2016-11-20] MEDS: RANITIDINE HCL 150 MG TABLET (FP) PO SCH ×2 (09:51→21:25)
[2016-11-20] MEDS: NICOTINE 14 MG/24 HOURS TOPICAL PATCH TD SCH (09:51)
[2016-11-20] MEDS: PRENATAL VITAMINS W/ FOLIC ACID TABLET (FP) PO SCH (09:51)
[2016-11-20] MEDS: NAPROXEN 500 MG TABLET (FP) PO SCH ×2 (09:52→21:22)
[2016-11-20] MEDS: LIDOCAINE 5% TOPICAL PATCH TP SCH (09:53)
[2016-11-20] MEDS: CLOTRIMAZOLE/BETAMET DIPROP 15 GM TUBE TP SCH ×2 (09:54→21:25)
[2016-11-20] MEDS: CYCLOBENZAPRINE HCL 10 MG TABLET (FP) PO PRN (21:22)
[2016-11-20] MEDS: QUEtiapine FUMARATE 100 MG TABLET (FP) PO SCH (21:22)
[2016-11-20] MEDS: THIAMINE HCL 100 MG TABLET (FP) PO SCH (21:24)
[2016-11-21] MEDS: GABAPENTIN 100 MG CAPSULE (FP) PO SCH ×3 (05:55→21:04)
[2016-11-21] MEDS: PRENATAL VITAMINS W/ FOLIC ACID TABLET (FP) PO SCH (09:30)
[2016-11-21] MEDS: RANITIDINE HCL 150 MG TABLET (FP) PO SCH ×2 (09:30→21:03)
[2016-11-21] MEDS: NAPROXEN 500 MG TABLET (FP) PO SCH ×2 (09:30→21:04)
[2016-11-21] MEDS: NICOTINE 14 MG/24 HOURS TOPICAL PATCH TD SCH (09:31)
[2016-11-21] MEDS: CLOTRIMAZOLE/BETAMET DIPROP 15 GM TUBE TP SCH ×2 (09:32→21:04)
[2016-11-21] MEDS: LIDOCAINE 5% TOPICAL PATCH TP SCH (09:32)
--- NOTE | 2016-11-21 10:09 | PN ---
Psychiatric Progress Note Vital Signs: Vital Signs Period Temp Pulse Resp BP Sys/[place]me[place] Pulse Ox Last 24 Hr 97.9 F 79 18-20 136/87 Date of Session: 11/21/16 Chief Complaint:: Psychiatrist Discharge Note HPI: Patient addressing Alcohol, Opoid and Cocaine Dependence comorbid with Nicotine Dependence and Substance-Induced Sleep Disorder. ROS: Asthma, GERD, bleeding ulcer, Right hip pain and headache was medically managed Current Medications: Active Medications Generic Name Dose Route Start Last Admin Trade Name Freq PRN Reason Stop Dose Admin Acetaminophen 650 mg 10/25/16 15:13 11/20/16 22:59 Tylenol - PO 650 mg Q4H PRN Administration PAIN Al Hydroxide/Mg Hydroxide 30 ml 10/25/16 15:13 11/17/16 22:17 Mylanta Oral Suspension - PO 30 ml Q6H PRN Administration DYSPEPSIA Albuterol Sulfate 2 puff 10/25/16 15:15 11/19/16 09:41 Ventolin Hfa Inhaler - IH 2 puff Q4H PRN Administration ASTHMA Clotrimazole 1 applic 11/18/16 22:00 11/21/16 09:32 Lotrisone Cream (Small Tube) TP Not Given BID ASHLYN Colloidal Oatmeal 1 applic 10/30/16 16:07 11/11/16 06:33 Aveeno Soap - TP 1 applic DAILY PRN Administration HYGEINE Cyclobenzaprine HCl 10 mg 11/13/16 13:56 11/20/16 21:22 Flexeril - PO 10 mg TID PRN Administration MUSCLE SPASMS Diphenhydramine HCl 50 mg 10/25/16 15:13 11/15/16 21:05 Benadryl - PO 50 mg HSMR1 PRN Administration INSOMNIA Eucalyptus/Menthol/Phenol/Sorbitol 1 each 10/25/16 15:13 Cepastat Lozenge - MM Q4H PRN SORE THROAT Gabapentin 100 mg 11/18/16 22:00 11/21/16 05:55 Neurontin - PO 100 mg TID ASHLYN Administration Guaifenesin 10 ml 10/25/16 15:13 Robitussin Dm - PO Q6H PRN COUGH Hydroxyzine Pamoate 50 mg 10/25/16 15:13 11/13/16 21:20 Vistaril - PO 50 mg Q4H PRN Administration AGITATION Lidocaine 1 patch 10/29/16 10:00 11/21/16 09:32 Lidoderm Patch - TP 1 patch DAILY ASHLYN Administration Loperamide HCl 4 mg 10/25/16 15:13 Imodium - PO Q6H PRN DIARRHEA Magnesium Citrate 300 ml 10/25/16 15:13 11/11/16 23:47 Citroma - PO 300 ml Q48H PRN Administration CONSTIPATION Magnesium Hydroxide 30 ml 10/25/16 15:13 Milk Of Magnesia - PO DAILY PRN CONSTIPATION Naproxen 500 mg 11/15/16 10:00 11/21/16 09:30 Naprosyn - PO 500 mg BID ASHLYN Administration Nicotine 14 mg 10/25/16 15:27 11/21/16 09:31 Nicoderm Patch - TD 14 mg DAILY ASHLYN Administration Multivit/Folic Acid/Iron 1 tab 10/26/16 10:00 11/21/16 09:30 Vitamins (Sjr) - PO 1 tab DAILY ASHLYN Administration Pseudoephedrine/Triprolidine 1 combo 10/25/16 15:13 11/14/16 09:35 Actifed - PO 1 combo TID PRN Administration NASAL CONGESTION Quetiapine Fumarate 100 mg 10/31/16 22:00 11/20/16 21:22 Seroquel - PO 100 mg HS ASHLYN Administration Ranitidine HCl 150 mg 10/25/16 22:00 11/21/16 09:30 Zantac - PO 150 mg BID ASHLYN Administration Thiamine HCl 100 mg 10/25/16 22:00 11/20/16 21:24 Vitamin B1 - PO Not Given HS ASHLYN Current Side Effect: No Lab tests ordered: Yes Lab tests reviewed: Yes Provider note:: Patient will complete this program on 11/22/16. He has met his treatment goals and will continue to address his issue in outpatient treament at [facility]. 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 He responded well to Seroquel 100 mg po HS for insomnia but was made aware in advance that he would not get script of that medication for that indication and he should seek the help of his PCP for appropriate management of insmnia. He is stable for discharge on 11/22/16 Total face to face time:: 35 Mental Status Exam - Mental Status Exam Alert and Oriented to: Time, Place, Person Cognitive Function: Fair Patient Appearance: Well Groomed Mood: Hopeful, Euthymic Affect: Appropriate Patient Behavior: Cooperative Speech Pattern: Clear Voice Loudness: Normal Thought Process: Intact Thought Disorder: Not Present Hallucinations: Denies Suicidal Ideation: Denies Homicidal Ideation: Denies Insight/Judgement: Fair Sleep: Fair Appetite: Good Muscle strength/Tone: Normal Gait/Station: Normal Psychiatric Treatment Plan - Problem List (1) Alcohol dependence Current Visit: Yes (2) Opioid dependence Current Visit: Yes (3) Cocaine dependence Current Visit: Yes (4) Nicotine dependence Current Visit: Yes (5) Substance-induced sleep disorder Current Visit: Yes (6) Asthma attack Current Visit: Yes (7) Bleeding ulcer Current Visit: Yes (8) GERD (gastroesophageal reflux disease) Current Visit: Yes Initial treatment plan: Patient will be discharged tomorrow and referred to [facility] for outpatient treatment
[2016-11-21] MEDS: COLLOIDAL OATMEAL 1 BAR EACH TP PRN (15:50)
[2016-11-21] MEDS: QUEtiapine FUMARATE 100 MG TABLET (FP) PO SCH (21:03)
[2016-11-21] MEDS: THIAMINE HCL 100 MG TABLET (FP) PO SCH (21:04)
[2016-11-21] MEDS: ACETAMINOPHEN 325 MG TABLET (FP) PO PRN (21:46)
[2016-11-22] MEDS: GABAPENTIN 100 MG CAPSULE (FP) PO SCH (06:02)
[2016-11-22 06:54] VITALS: BP 141/95; PULSE 83; TEMP 97.6
[2016-11-22] MEDS: NAPROXEN 500 MG TABLET (FP) PO SCH (09:30)
[2016-11-22] MEDS: RANITIDINE HCL 150 MG TABLET (FP) PO SCH (09:30)
[2016-11-22] MEDS: PRENATAL VITAMINS W/ FOLIC ACID TABLET (FP) PO SCH (09:30)
[2016-11-22] MEDS: NICOTINE 14 MG/24 HOURS TOPICAL PATCH TD SCH (09:31)
[2016-11-22] MEDS: CLOTRIMAZOLE/BETAMET DIPROP 15 GM TUBE TP SCH (09:33)
== END 2016-11-22 09:55 | disposition home or self-care (01) | DRG 895 ==
LOC: YASAS 11:21 → Y3W 14:53
PROVIDERS: ADMIT Psychiatry & Neurology Psychiatry; ATTEND Psychiatry & Neurology Psychiatry
PROC: HZ42ZZZ Group Counseling for Substance Abuse Treatment, Cognitive-Behavioral (ICD-10-PCS; principal; 2016-11-22)
DX: F11.20 Opioid dependence, uncomplicated (principal); F14.20 Cocaine dependence, uncomplicated; F19.282 Other psychoactive substance dependence with psychoactive substance-induced sleep disorder; F10.20 Alcohol dependence, uncomplicated; F17.210 Nicotine dependence, cigarettes, uncomplicated; G47.00 Insomnia, unspecified; J45.909 Unspecified asthma, uncomplicated; K21.9 Gastro-esophageal reflux disease without esophagitis; R63.4 Abnormal weight loss; Z68.24 Body mass index [BMI] 24.0-24.9, adult
CPT/HCPCS: 36415; 73502-TC-RT; 80048; 80053; 81003; 83036; 85027; 86593; 93005; 93010